=== PATIENT | male | born 1965 | race Caucasian/White ===

== ENCOUNTER 2021-08-04 11:09 | Emergency (ER) | payer OTHER ==
[~2021-08-04] VITALS: Ht 177.8 cm; Wt 97.2 kg
[2021-08-04 11:12] VITALS: BP 150/98
--- NOTE | 2021-08-04 11:26 | NUR ---
PT AMBULATED TO ER BED 1 WITH A STEADY GAIT.
[2021-08-04] MEDS ORDERED: MAG-27 PO (11:44)
[2021-08-04] MEDS ORDERED: ACET-8386 PO (11:44)
[2021-08-04] MEDS ORDERED: KETOROLAC 30 MG/ML VIAL IM ONE (11:45)
[2021-08-04] MEDS ORDERED: DICYCLOMINE HCL LIQUID 20 MG, ALUMINUM HYD/MAG/SIMETHICONE 30 ML, LIDOCAINE VISCOUS 2% ... PO ONE ×3 (11:45)
[2021-08-04] MEDS ORDERED: HYDROcodone/APAP 5/325 MG 1 TAB TAB PO ONE (11:45)
--- NOTE | 2021-08-04 11:45 | NUR ---
56 Y/O MALE C/O GENERALIZED ABDOMINAL PAIN 04/08 DESCRIBES ACHING NON-RADIATING X 3 MONTHS. ABD IS SOFT, LARGE, NON-TENDER TO PALPATION, BOWEL SOUNDS ACTIVE X4, LAST BM 08/03/21. DENIES FEVER/CHILLS. DENIES N/V/D. PMH: KIDNEY, PANCREAS PROBLEMS LLERGIES: PCN
[2021-08-04] MEDS ORDERED: ALUMINUM HYD/MAG/SIMETHICONE 30 ML UDC ONE (11:47)
[2021-08-04] MEDS ORDERED: DICYCLOMINE HCL LIQUID 10 MG/5 ML UDC ONE (11:47)
[2021-08-04 12:06] VITALS: BP 138/92
--- NOTE | 2021-08-04 12:07 | NUR ---
Patient discharged with v/s stable. Written and verbal after care instructions given FOR ABDOMINAL PAIN and explained. Patient alert, oriented and verbalized understanding of instructions. Ambulatory with steady gait. All questions addressed prior to discharge. ID band removed. Patient advised to follow up with PMD. Rx of MYLANTA AND NORCO given. Patient educated on indication of medication including possible reaction and side effects. Opportunity to ask questions provided and answered.
== END 2021-08-04 12:06 | disposition home or self-care (01) ==
LOC: MED 11:09
DX: R10.9 Unspecified abdominal pain (principal); G89.29 Other chronic pain; F17.210 Nicotine dependence, cigarettes, uncomplicated; Z79.891 Long term (current) use of opiate analgesic; Z79.899 Other long term (current) drug therapy; Z90.49 Acquired absence of other specified parts of digestive tract; Z88.0 Allergy status to penicillin
CPT/HCPCS: 81002; 96372; 99283; J1885

== ENCOUNTER 2021-08-16 11:03 | Emergency (ER) | payer OTHER ==
[~2021-08-16] VITALS: Ht 177.8 cm; Wt 98.9 kg
[~2021-08-16 11:03] MED LIST: ACET-8386 PO; MAG-27 PO
[2021-08-16 11:06] VITALS: BP 153/99
--- NOTE | 2021-08-16 11:12 | NUR ---
56/M AMBULATED TO BED, C/O ABDOMINAL PAIN X3 MONTHS. STATES "I THINK I HAVE GALLSTONES." DENIES N/V/D, DYSURIA, CP. MEDHX: HTN ALLERGIES: PENICILLINS, SX: GLABLADDER REMOVED 3 YEARS AGO
[2021-08-16] MEDS ORDERED: HYDROcodone/APAP 10/325 MG 1 TAB TAB PO STA (11:21)
[2021-08-16] MEDS ORDERED: DICYCLOMINE HCL LIQUID 20 MG, ALUMINUM HYD/MAG/SIMETHICONE 30 ML, LIDOCAINE VISCOUS 2% ... PO ONE ×3 (11:25)
[2021-08-16] MEDS ORDERED: KETOROLAC 30 MG/ML VIAL IM ONE (11:25)
[2021-08-16] MEDS ORDERED: DICYCLOMINE HCL LIQUID 10 MG/5 ML UDC ONE (11:27)
[2021-08-16] MEDS ORDERED: ALUMINUM HYD/MAG/SIMETHICONE 30 ML UDC ONE ×2 (11:27→11:30)
[2021-08-16] MEDS ORDERED: MAG-27 PO (11:28)
[2021-08-16] MEDS ORDERED: ALUMINUM HYD/MAG/SIMETHICONE 30 ML UDC PO ONE (11:30)
--- NOTE | 2021-08-16 11:50 | NUR ---
Patient discharged with v/s stable. Written and verbal after care instructions given and explained. Patient alert, oriented and verbalized understanding of instructions. Ambulatory with steady gait. All questions addressed prior to discharge. ID band removed. Patient advised to follow up with PMD. Rx of MYLANTA given. Patient educated on indication of medication including possible reaction and side effects. Opportunity to ask questions provided and answered.
== END 2021-08-16 11:50 | disposition home or self-care (01) ==
LOC: MED 11:03
DX: R10.13 Epigastric pain (principal); G89.29 Other chronic pain; I10 Essential (primary) hypertension; Z88.0 Allergy status to penicillin; Z79.899 Other long term (current) drug therapy
CPT/HCPCS: 96372; 99284; J1885

== ENCOUNTER 2021-08-29 03:53 | Emergency (ER) | payer OTHER ==
[~2021-08-29] VITALS: Ht 177.8 cm; Wt 99.4 kg
[2021-08-29 04:01] VITALS: BP 116/76
--- NOTE | 2021-08-29 04:06 | NUR ---
PT TAKEN TO BED 4
--- NOTE | 2021-08-29 04:25 | NUR ---
56 Y/O MALE BIB SELF, C/O ABDOMINAL PAIN X5 MONTHS. PT STATES HE HAD A CHOLECYSTECTOMY 3 YRS AGO AND EVER SINCE THEN HE HAS HAD ABDOMINAL PAIN AND THAT HE HAS "A KIDNEY STONE STUCK." DENIES V/D; SKIN IS PINK/WARM/DRY; AAOX4 WITH EVEN AND STEADY GAIT; LUNGS CLEAR BL; HR EVEN AND REGULAR; PT DENIES ANY FEVER, CP, SOB, OR COUGH AT THIS TIME; PATIENT STATES PAIN OF 10/10 AT THIS TIME; PT IS IN NO VISUAL DISTRESS; VSS; PATIENT POSITIONED FOR COMFORT; HOB ELEVATED; BEDRAILS UP X1; BED DOWN. ER MD MADE AWARE OF PT STATUS. STATES HE IS GOING TO SEE A SPECIALIST ABOUT HIS ABDOMEN ON THE . HX: CHOLECYSTECTOMY, HTN ALLERGIES TO PCN MED: UNK HTN MED
[2021-08-29] MEDS ORDERED: KETOROLAC 30 MG/ML VIAL IVP ONE (04:30)
[2021-08-29] MEDS ORDERED: ALUMINUM HYD/MAG/SIMETHICONE 30 ML, DICYCLOMINE HCL LIQUID 20 MG, LIDOCAINE VISCOUS 2% ... PO ONE ×3 (04:30)
[2021-08-29] MEDS ORDERED: NACL 0.9% 1,000 ML IV SCH (04:30)
--- NOTE | 2021-08-29 04:40 | NUR ---
PT REFUSES CT BECAUSE HE SAYS SINCE HE HAS HAD MULTIPLE CT IN THE PAST AND HAS A ULTRASOUND APPT ON THE . PT ADMITS HE IS SEEKING PAIN MANAGEMENT UNTIL HIS APPOINTMENT.
[2021-08-29] MEDS ORDERED: ALUMINUM HYD/MAG/SIMETHICONE 30 ML UDC ONE (04:45)
[2021-08-29] MEDS ORDERED: KETOROLAC 60 MG/2 ML VIAL IM ONE (04:45)
[2021-08-29] MEDS ORDERED: PANTOPRAZOLE 40 MG TABEC PO ONE (04:45)
[2021-08-29] MEDS ORDERED: DICYCLOMINE HCL LIQUID 10 MG/5 ML UDC ONE (04:45)
[2021-08-29 04:58] VITALS: BP 116/76
--- NOTE | 2021-08-29 04:58 | NUR ---
Patient discharged with v/s stable. Written and verbal after care instructions given and explained. Patient verbalized understanding. Ambulatory with steady gait. All questions addressed prior to discharge. Advised to follow up with PMD. VSS, A/OX4, AMBULATORY, UNLABORED BREATHING, AND CALM DEMEANOR.
== END 2021-08-29 04:58 | disposition home or self-care (01) ==
LOC: MED 03:53
DX: R10.33 Periumbilical pain (principal); G89.29 Other chronic pain; I10 Essential (primary) hypertension; Z79.899 Other long term (current) drug therapy; Z79.891 Long term (current) use of opiate analgesic; Z88.0 Allergy status to penicillin
CPT/HCPCS: 96372; 99283; J1885

== ENCOUNTER 2021-08-30 15:03 | Emergency (ER) | payer OTHER ==
[~2021-08-30] VITALS: Ht 177.8 cm; Wt 95.3 kg
[2021-08-30 15:09] VITALS: BP 159/90
--- NOTE | 2021-08-30 15:48 | NUR ---
patient refusing care at this time and eloped
--- NOTE | 2021-08-30 15:48 | NUR ---
PATIENT ELOPED FROM FACILITY. DISCHARGE INSTRUCTIONS NOT GIVEN TO PATIENT. JADA SANDOVAL NOTIFIED.
== END 2021-08-30 15:48 | disposition left against medical advice (07) ==
LOC: MED 15:03
DX: G89.29 Other chronic pain (principal); R10.33 Periumbilical pain; I10 Essential (primary) hypertension; F17.210 Nicotine dependence, cigarettes, uncomplicated; Z90.49 Acquired absence of other specified parts of digestive tract; Z88.0 Allergy status to penicillin; Z79.899 Other long term (current) drug therapy
CPT/HCPCS: 99281

== ENCOUNTER 2021-10-26 16:47 | Emergency (ER) | payer OTHER ==
[~2021-10-26] VITALS: Ht 177.8 cm; Wt 99.3 kg
[2021-10-26 16:58] VITALS: BP 107/60
--- NOTE | 2021-10-26 17:01 | NUR ---
PT TO AWAIT IN LOBBY
--- NOTE | 2021-10-26 17:45 | NUR ---
PT AMBULATED TO BED, STEADY GAIT
[2021-10-26] MEDS ORDERED: KETOROLAC 60 MG/2 ML VIAL IM ONE (17:55)
[2021-10-26] MEDS ORDERED: ACET-8386 PO (18:39)
--- NOTE | 2021-10-26 18:40 | NUR ---
56 y/o male, c/o abd pain and bug bite on abd area that appeared 4 days ago. site appears red and has yellow discharge. pt states "I think a spider bit me". denies nausea, vomiting, diarrhea. lungs clear bl, heart rate even and regular. pt denies any fever, cp, sob, or cough at this time. pt states pain is 8/10. patient positioned for comfort. hob elevated. bed down. ermd made aware of pt. pmh: peptic ulcer allergy: penicillin
--- NOTE | 2021-10-26 18:55 | NUR ---
Patient discharged with v/s stable. Written and verbal after care instructions given and explained. Patient alert, oriented and verbalized understanding of instructions. Ambulatory with steady gait. All questions addressed prior to discharge. ID band removed. Patient advised to follow up with PMD. Rx of HYDROCODONE given. Opportunity to ask questions provided and answered.
== END 2021-10-26 18:55 | disposition home or self-care (01) ==
LOC: MED 16:47
DX: L02.211 Cutaneous abscess of abdominal wall (principal); L03.311 Cellulitis of abdominal wall; I10 Essential (primary) hypertension; F17.210 Nicotine dependence, cigarettes, uncomplicated; Z90.49 Acquired absence of other specified parts of digestive tract; Z79.899 Other long term (current) drug therapy; Z79.891 Long term (current) use of opiate analgesic; Z88.0 Allergy status to penicillin
CPT/HCPCS: 96372; 99283; J1885

== ENCOUNTER 2021-11-02 15:01 | Emergency (ER) | payer OTHER ==
[~2021-11-02] VITALS: Ht 177.8 cm; Wt 89.0 kg
--- NOTE | 2021-11-02 15:05 | NUR ---
PT AMBULATED TO BEDSIDE
[2021-11-02 15:06] VITALS: BP 139/83
--- NOTE | 2021-11-02 15:20 | NUR ---
DR. CASTRO AT PT BEDSIDE FOR FURTHER EVALUATION.
[2021-11-02] MEDS ORDERED: ONDANSETRON 4 MG TAB PO ONE (15:25)
[2021-11-02] MEDS ORDERED: MORPHINE SULFATE 4 MG/ML SYR IM ONE (15:25)
--- NOTE | 2021-11-02 15:32 | NUR ---
56Y MALE BIB SELF DUE TO ABDOMINAL PAIN AND N/V S/P GETTING BITE BY SPIDER X4 DAYS AGO. BITE/ABCESS NOTED ON PT ABDOMEN. PT STATED CAN NOT KEEP FOOD OR WATER DOWN. DOES NOT HAVE DIAHRREA. THE PAIN HAS BEEN A 10/10 FOR THE PAST 3 DAYS. THE PAIN IS SHARP ALL OVER HIS ABDOMEN. SPIDEER BITE NOTED ABOVE UMBILICUS THAT PT STATES IS GETTIG BETTER. PT STATED HE WAS TAKING NORCOS FOR THE PAIN BUT RAN OUT. A&OX3 IN BED. PMH:GALLBLADDER REMOVAL ALLERGIES: PENICILLINS
[2021-11-02] MEDS ORDERED: HYDR-5191 PO ×2 (15:51→19:49)
[2021-11-02] MEDS ORDERED: ONDA8TAB87 PO ×2 (15:51→19:49)
--- NOTE | 2021-11-02 16:29 | NUR ---
PER J ULIS NAZARIO ITS OKAY TO DISCHARGE PT NOW.
[2021-11-02] MEDS ORDERED: OMEP40EC24 PO ×2 (16:35→19:49)
[2021-11-02] MEDS ORDERED: DICYCLOMINE HCL LIQUID 20 MG, ALUMINUM HYD/MAG/SIMETHICONE 30 ML, LIDOCAINE VISCOUS 2% ... PO ONE ×3 (16:35)
[2021-11-02 16:47] VITALS: BP 139/83
--- NOTE | 2021-11-02 16:48 | NUR ---
Patient discharged with v/s stable. Written and verbal after care instructions given and explained. Patient alert, oriented and verbalized understanding of instructions. Ambulatory with steady gait. All questions addressed prior to discharge. ID band removed. Patient advised to follow up with PMD. Rx of PEPCID, ZOFRAN, AND HYDROCODONE-ACETAMINOPHN given. Patient educated on indication of medication including possible reaction and side effects. Opportunity to ask questions provided and answered.
== END 2021-11-02 16:48 | disposition home or self-care (01) ==
LOC: MED 15:01
DX: L02.211 Cutaneous abscess of abdominal wall (principal); R11.2 Nausea with vomiting, unspecified; I10 Essential (primary) hypertension; Z88.0 Allergy status to penicillin; Z79.899 Other long term (current) drug therapy; Z90.49 Acquired absence of other specified parts of digestive tract
CPT/HCPCS: 10060; 81002; 96372; 99283; J2270; Q0162

== ENCOUNTER 2021-11-03 11:51 | Inpatient (IN) | payer OTHER ==
[~2021-11-03] VITALS: Ht 175.3 cm; Wt 81.6 kg
[~2021-11-03 11:51] MED LIST changes: +HYDR-5191 PO; +OMEP40EC24 PO; +ONDA8TAB87 PO
--- NOTE | 2021-11-03 12:00 | NUR ---
56 Y/O MALE BIBA C/O GENERALIZED ABDOMINAL PAIN WITH N/V X1 MONTH. PAIN RATED 10/10 NON RADIATING. PT WAS SEEN IN ED FOR SAME COMPLAINT 1 DAY AGO. PT WAS MEDICATED PRIOR TO ARRIVAL WITH ZOFRAN 4MG IVP. PT DENIES SOB, CHEST PAIN. VSS P101, R 18, O2SaT 100 ROOM AIR, BP 132/82. BED LOCKED IN LOWEST POSITION. BED RAIL X1. PMH:pancreatitis ALLERGIES:PENICILLIN
--- NOTE | 2021-11-03 12:31 | NUR ---
DR LAUREANO AT BEDSIDE EVALUATING PT
[2021-11-03] MEDS ORDERED: FAMOTIDINE 20 MG/2 ML VIAL IVP ONE (12:35)
[2021-11-03] MEDS ORDERED: MORPHINE SULFATE 4 MG/ML SYR IVP ONE (12:35)
[2021-11-03] MEDS ORDERED: ONDANSETRON 4 MG/2 ML VIAL IVP ONE (12:35)
[2021-11-03 13:37] LABS: BASOPHILS # (AUTO) 0.1 K/uL (0.00-0.22); BASOPHILS % (AUTO) 0.4 % (0.0-2.0); EOSINOPHILS % (AUTO) 0.1 % (0.0-4.0); HEMATOCRIT 43.4 % (36-52); HEMOGLOBIN 14.6 g/dL (12.0-18.0); LYMPHOCYTES % (AUTO) 13.7 % (20.5-51.1); MEAN CORPUSCULAR HEMOGLOBIN 30 pg (27-31); MEAN CORPUSCULAR HGB CONC 34 g/dL (33-37); MEAN CORPUSCULAR VOLUME 90.3 fL (80-94); MONOCYTES # (AUTO) 0.9 K/uL (0.8-1.0); NEUTROPHILS # (AUTO) 11.6 K/uL (1.8-7.7); NEUTROPHILS % (AUTO) 79.8 % (42.2-75.2); PLATELET COUNT (AUTO) 336 K/uL (140-450); RED BLOOD CELL COUNT(AUTO) 4.81 MIL/uL (4.20-6.10); RED CELL DISTRIBUTION WIDTH 13.5 % (11.6-13.7); WHITE BLOOD COUNT (AUTO) 14.5 K/uL (4.8-10.8)
[2021-11-03 13:49] LABS: ALBUMIN 3.9 g/dL (3.4-5.0); ANION GAP 12.9 (8-16); CARBON DIOXIDE 21.8 mmol/L (21-32); CREATININE 0.1 mg/dL (0.6-1.3); POTASSIUM 4.7 mmol/L (3.5-5.1); TOTAL BILIRUBIN 0.4 mg/dL (0.0-1.0)
[2021-11-03] MEDS ORDERED: NACL 0.9% 1,000 ML IV ONE (14:05)
[2021-11-03] MEDS ORDERED: diphenhydrAMINE 50 MG/ML VIAL IVP ONE (15:30)
[2021-11-03] MEDS ORDERED: METOCLOPRAMIDE 10 MG/2 ML INJ VIAL IVP ONE (15:30)
--- NOTE | 2021-11-03 15:35 | NUR ---
IV INSERTED BY MEDICS REMOVED. MD LAUREANO AWARE. CATHETER INTACT AND SITE BENING TO R AC. APPLIED FOLDED 4X4 GAUZE AND TAPE TO STOP BLEEDING.
--- NOTE | 2021-11-03 15:54 | NUR ---
MED RECONCILIATION ATTEMPTED. PT STATES HE TAKES MANY MEDICATIONS AND CANNOT RECALL THE NAMES AND DOSAGES.
[2021-11-03 16:10] VITALS: BP 160/95
--- NOTE | 2021-11-03 16:10 | NUR ---
RECEIVED PATIENT FROM ER NURSE VIA W/C. PT ADMITTED FOR ACUTE PANCREATITIS. PT IS AOX3, ABLE TO MAKE NEEDS KNOWN. RESPIRATIONS EVEN AND UNLABORED. ON ROOM AIR AND NO DISTRESS NOTED. SKIN IS WARM, DRY, AND NON-INTACT. IV SITE ON LAC 20G SALINE LOCKED. INTACT AND PATENT. S/P I&D ABD WOUND FROM SPIDER BITE. NO DRAINAGE NOTED. ABD IS SOFT, FLAT, AND NON-DISTENDED. BOWEL SOUNDS ACTIVE IN ALL QUADRANTS. CC OF ABD PAIN 6/10. WILL MEDICATE WITH PRN PAIN MEDS. PLAN OF CARE DISCUSSED. SAFETY PRECAUTIONS IN PLACE. CALL LIGHT WITHIN REACH. WILL CONTINUE TO MONITOR.
--- NOTE | 2021-11-03 16:23 | NUR ---
Patient will be admitted to care of [facility]. Admited to MED SURG. Will go to room 123 B. Belongings list completed. Report to EMY BETHEA.
[2021-11-03] MEDS ORDERED: MAGNESIUM OXIDE 400 MG TAB PO PRN (17:25)
[2021-11-03] MEDS ORDERED: KCL 20 MEQ/WATER INJ PREMIX 200 ML IV PRN (17:25)
[2021-11-03] MEDS ORDERED: ACETAMINOPHEN 325 MG TAB PO PRN (17:25)
[2021-11-03] MEDS ORDERED: POTASSIUM CHLORIDE 10 MEQ TABER PO PRN (17:25)
[2021-11-03] MEDS ORDERED: MORPHINE SULFATE 4 MG/ML SYR IVP PRN (17:25)
[2021-11-03] MEDS ORDERED: ONDANSETRON 4 MG/2 ML VIAL IVP PRN (17:25)
[2021-11-03] MEDS ORDERED: MAG SULF 2000 MG/WATER PREMIX 50 ML IV PRN (17:25)
[2021-11-03] MEDS: NACL 0.9% 1,000 ML IV SCH (17:46)
--- NOTE | 2021-11-03 17:46 | NUR ---
PATIENT CC OF 10/ ABD PAIN. ADMINISTERED PRN PAIN MEDICATIONS PER MD ORDERED
--- NOTE | 2021-11-03 19:35 | NUR ---
ENDORSED TO SHAREPOINT APPLICATION ARCHITECT NURSE FOR CONTINUITY OF CARE. PT IS STABLE.
--- NOTE | 2021-11-03 19:36 | NUR ---
RECEIVED PT FROM AM NURSE FOR CONTINUITY IF CARE.PT IS STABLE
[2021-11-03 20:00] VITALS: BP 145/93
--- NOTE | 2021-11-03 21:30 | NUR ---
ALL MEDS GIVEN AT THIS TIME,TOLERATED WELL,NO DISTRESS NOTED
[2021-11-03] MEDS: ZOLPIDEM 5 MG TAB PO PRN (23:24)
[2021-11-04] VITALS: BP 139/84
--- NOTE | 2021-11-04 | NUR ---
PATIENT ACCIDENTALLY PULLED OUT HIS IV. ATTEMPTED TO REINSERT NEW IV BUT FAILED. CARRIZALES THE DR TO PRESCRIBE IM UNTIL A NEW IV SITE IS IN PLACE, DR SAID OK,MORPHINE SULFATE IM GIVEN FOR COMPLAIN OF ABDOMINAL PAIN.
--- NOTE | 2021-11-04 01:00 | NUR ---
NEW IV SITE IN PLACE.INTACT AND PATENT.PATIENT IS IN NO DISTRESS
[2021-11-04] MEDS: MORPHINE SULFATE 4 MG/ML SYR IM/IVP PRN ×5 (01:14→22:19)
--- NOTE | 2021-11-04 03:00 | NUR ---
PATIENT ASLEEP,BREATHING EVEN AND UNLABORED,NO DISTRESS NOTED
[2021-11-04 04:00] VITALS: BP 140/89
[2021-11-04] MEDS: NACL 0.9% 1,000 ML IV SCH ×2 (05:55→18:05)
--- NOTE | 2021-11-04 06:00 | NUR ---
PATIENT PULLED OUT HIS IV AGAIN, UNABLE TO INSERT A NEW IV SITE, WILL ENDORSE TO AM SHIFT
[2021-11-04 07:18] LABS: ALBUMIN 3.5 g/dL (3.4-5.0); ANION GAP 14.5 (8-16); CARBON DIOXIDE 23.3 mmol/L (21-32); CREATININE 1.8 mg/dL (0.6-1.3); POTASSIUM 4.8 mmol/L (3.5-5.1); TOTAL BILIRUBIN 0.4 mg/dL (0.0-1.0)
[2021-11-04 07:20] LABS: BASOPHILS % (AUTO) 0.2 % (0.0-2.0); EOSINOPHILS % (AUTO) 0.1 % (0.0-4.0); HEMATOCRIT 42.7 % (36-52); HEMOGLOBIN 14.3 g/dL (12.0-18.0); LYMPHOCYTES # (AUTO) 2.1 K/uL (2.0-11.5); LYMPHOCYTES % (AUTO) 12.8 % (20.5-51.1); MEAN CORPUSCULAR HEMOGLOBIN 30 pg (27-31); MEAN CORPUSCULAR HGB CONC 34 g/dL (33-37); MEAN CORPUSCULAR VOLUME 90.2 fL (80-94); MONOCYTES # (AUTO) 1.3 K/uL (0.8-1.0); MONOCYTES % (AUTO) 7.7 % (1.7-9.3); NEUTROPHILS % (AUTO) 79.2 % (42.2-75.2); PLATELET COUNT (AUTO) 290 K/uL (140-450); RED BLOOD CELL COUNT(AUTO) 4.74 MIL/uL (4.20-6.10); RED CELL DISTRIBUTION WIDTH 13.3 % (11.6-13.7); WHITE BLOOD COUNT (AUTO) 16.4 K/uL (4.8-10.8)
--- NOTE | 2021-11-04 07:25 | NUR ---
RECEIVED ENDORSEMENT FROM PM SHIFT NURSE THAT PATIENT REST IN BED, IV ACCESS PULLED OUT BY PATIENT, REQUEST PAIN MEDICATION; PO ATIVAN & IM MORPHINE GIVEN. PCP AWARE PATIENT REFUSE IV, AND SOME IV MEDICATION CAN GIVEN IM. WILL CONTINUE TO MONITOR PATIENT.
[2021-11-04] MEDS: LORazepam 1 MG TAB PO PRN ×3 (07:46→18:06)
[2021-11-04 08:00] VITALS: BP 142/73
--- NOTE | 2021-11-04 08:08 | NUR ---
PATIENT HAS BEEN SCREENED AND CATEGORIZED MODERATE NUTRITION RISK. PATIENT WILL BE SEEN WITHIN 3-5 DAYS OF ADMISSION. 11/04/21-11/08/[address]
[2021-11-04] MEDS: ENOXAPARIN 40 MG/0.4 ML SYR SUBQ SCH (09:09)
--- NOTE | 2021-11-04 11:30 | NUR ---
RECEIVE NEW ORDER PANTOPRAZOLE FOR PATIENT'S UPSET STOMACH, GIVE MEDICATION THROUGH IV PUSH AT L. FOREARM 24G SITE AFTER GIVE PATIENT ANOTHER DOSE OF PO ATIVAN AND IM MORPHINE. WILL CONTINUE TO MONITOR PATIENT.
[2021-11-04] MEDS: PANTOPRAZOLE 40 MG INJ VIAL IVP SCH (11:45)
--- NOTE | 2021-11-04 14:28 | NUR ---
RECEIVED 2ND STATUS CHECK CALL FROM PATIENT'S FAMILY AND INFORM HIS SISTER THAT PATIENT IS SLEEPING AFTER HAVE PAIN MEDICATION. WILL CONTINUE TO MONITOR
[2021-11-04 16:00] VITALS: BP 131/92
[2021-11-04] MEDS: HYDROcodone/APAP 5/325 MG 1 TAB TAB PO PRN (19:11)
--- NOTE | 2021-11-04 19:32 | NUR ---
ENDORSE PT TO PM SHIFT NURSE WHILE PATIENT REST IN BED, PIV L. FOREARM PATENT, SALINE LOCKED. DUE TO PATIENT PULL IV OUT MULTIPLE TIME, PATIENT'S SOME IV MEDICATION CAN GIVEN IM
--- NOTE | 2021-11-04 19:33 | NUR ---
RECEIVED ENDORSEMENT FROM EMY ALVA FOR CONTINUITY OF CARE. PATIENT IS AWAKE AND STABLE. A&OX3. VERBALLY RESPONSIVE AND ABLE TO COMMUNICATE NEEDS. ON ROOM AIR WITH NO APPARENT S/SX OF ACUTE DISTRESS. RESPIRATIONS EVEN AND UNLABORED WITH NO APPARENT S/SX OF ACUTE DISTRESS. AMBULATORY AND SCABBING WOUND ON ABD NOTED. CONTINENT OF VOID AND BM. IV SITE TO THE LFA 24G PATENT/INTACT WITH NS INFUSING AT 80 ML/HR. PLAN OF CARE AND WHITE COMMUNICATION BOARD UPDATED. ALL SAFETY MEASURES IN PLACE. CALL LIGHT WITHIN REACH. WILL CONTINUE TO MONITOR.
[2021-11-04 20:00] VITALS: BP 125/71
--- NOTE | 2021-11-04 20:00 | NUR ---
Patient's Plan of Care was discussed and reviewed with MOISES MCKENZIE
--- NOTE | 2021-11-04 21:10 | NUR ---
ADMINISTERED SCHEDULED PO MEDS PER MD ORDER. TOLERATED WELL. DENIES PAIN. RESPIRATIONS EVEN AND UNLABORED WITH NO APPARENT S/SX OF ACUTE DISTRESS. WHITE COMMUNICATION BOARD UPDATED. ALL SAFETY MEASURES IN PLACE. CALL LIGHT WITHIN REACH. WILL CONTINUE TO MONITOR.
[2021-11-04] MEDS: ZOLPIDEM 5 MG TAB PO PRN (21:21)
--- NOTE | 2021-11-04 21:30 | NUR ---
SPOKE WITH PATIENT'S SISTER ANGELA REGARDING PATIENT'S PSYCH MEDS. PER SISTER, [facility] WILL RELEASE INFORMATION TO HOSPITAL.
--- NOTE | 2021-11-04 21:45 | NUR ---
SPOKE WITH RAEGAN AT [facility] AND DISCLOSED THAT PATIENT TAKES BUSPAR 30MG BID AND SEROQUEL 100MG HQS. WILL CONTACT ON-CALL FOR PRESCRIPTION.
--- NOTE | 2021-11-04 22:10 | NUR ---
DR. AGUILAR APPROVED BUSPAR AND SEROQUEL FOR PRESCRIPTION. WILL PUT IN TORB.
[2021-11-04] MEDS ORDERED: QUEtiapine FUMARATE 100 MG TAB PO SCH (22:32)
[2021-11-04] MEDS: busPIRone 5 MG TAB PO SCH (22:39)
--- NOTE | 2021-11-05 01:05 | NUR ---
CHECKED PATIENT. PATIENT IS STABLE AND ASLEEP. CHEST IS RISING AND FALLING EVENLY. RESPIRATIONS EVEN AND UNLABORED WITH NO APPARENT S/SX OF ACUTE DISTRESS. WHITE COMMUNICATION BOARD UPDATED. ALL SAFETY MEASURES IN PLACE. CALL LIGHT WITHIN REACH. WILL CONTINUE TO MONITOR.
--- NOTE | 2021-11-05 03:25 | NUR ---
ROUNDED ON PATIENT. PATIENT IS STABLE AND ASLEEP. CHEST IS RISING AND FALLING EVENLY. RESPIRATIONS EVEN AND UNLABORED WITH NO APPARENT S/SX OF ACUTE DISTRESS. WHITE COMMUNICATION BOARD UPDATED. ALL SAFETY MEASURES IN PLACE. CALL LIGHT WITHIN REACH. WILL CONTINUE TO MONITOR.
[2021-11-05 04:00] VITALS: BP 125/93
[2021-11-05] MEDS: MORPHINE SULFATE 4 MG/ML SYR IM/IVP PRN ×4 (04:33→20:58)
[2021-11-05] MEDS: LORazepam 1 MG TAB PO PRN ×3 (04:58→21:09)
--- NOTE | 2021-11-05 05:00 | NUR ---
PATIENT YELLED, "COME HELP ME!" AND BANGED DOOR. PATIENT APPEARS TO BE ANXIOUS. OFFERED PATIENT SNACKS AND FLUIDS. PATIENT COMPLIED. MEDICATED PATIENT WITH PRN ATIVAN PO. TOLERATED WELL. GAVE PATIENT MORE BLANKETS PER REQUEST. PATIENT APPEARS TO CALM DOWN. ALL NEEDS MET. WHITE COMMUNICATION BOARD UPDATED. ALL SAFETY MEASURES IN PLACE. CALL LIGHT WITHIN REACH. WILL CONTINUE TO MONITOR.
[2021-11-05] MEDS: NACL 0.9% 1,000 ML IV SCH ×2 (06:55→19:25)
[2021-11-05 06:57] LABS: BASOPHILS % (AUTO) 0.2 % (0.0-2.0); EOSINOPHILS % (AUTO) 0.3 % (0.0-4.0); HEMATOCRIT 40.9 % (36-52); HEMOGLOBIN 13.9 g/dL (12.0-18.0); LYMPHOCYTES # (AUTO) 1.7 K/uL (2.0-11.5); LYMPHOCYTES % (AUTO) 12.2 % (20.5-51.1); MEAN CORPUSCULAR HEMOGLOBIN 31 pg (27-31); MEAN CORPUSCULAR HGB CONC 34 g/dL (33-37); MEAN CORPUSCULAR VOLUME 90.1 fL (80-94); MONOCYTES % (AUTO) 7.5 % (1.7-9.3); NEUTROPHILS % (AUTO) 79.8 % (42.2-75.2); PLATELET COUNT (AUTO) 232 K/uL (140-450); RED BLOOD CELL COUNT(AUTO) 4.54 MIL/uL (4.20-6.10); RED CELL DISTRIBUTION WIDTH 13.3 % (11.6-13.7); WHITE BLOOD COUNT (AUTO) 13.7 K/uL (4.8-10.8)
--- NOTE | 2021-11-05 07:05 | NUR ---
ENDORSED PATIENT TO MOISES PARKS FOR CONTINUITY OF CARE. PATIENT IS STABLE.
--- NOTE | 2021-11-05 07:06 | NUR ---
RECEIVED REPORT FROM CHILD CARE COUNSELOR NURSE FOR CONTINUITY OF CARE. PT IS IN BED RESTING AT THIS TIME. RESPIRATIONS ARE EVEN AND UNLABORED ON ROOM AIR. NO SIGNS OF DISTRESS NOTED. PATIENT IS A&OX3. ABLE TO VERBALIZE NEEDS TO STAFF. ABD IS NONTENDER, NONDISTENDED WITH BOWEL SOUNDS PRESENT. IS PT CONTINENT OF BOWEL AND BLADDER, ABLE TO AMBULATE. SKIN IS WARM, AND DRY, WITH SCABBING WOUND ON ABD NOTED. PT HAS IV SITE TO THE LFA 24G PATENT/INTACT WITH NS INFUSING AT 80 ML/HR. PT IS ON ISOLATION PRECAUTIONS, COVID RAPID POSITIVE. ALL SAFETY MEASURES IN PLACE. CALL LIGHT WITHIN REACH. WILL CONTINUE TO MONITOR.
[2021-11-05 07:11] LABS: ALBUMIN 3.2 g/dL (3.4-5.0); ANION GAP 12.3 (8-16); CREATININE 1.7 mg/dL (0.6-1.3); POTASSIUM 4.3 mmol/L (3.5-5.1); TOTAL BILIRUBIN 0.6 mg/dL (0.0-1.0)
[2021-11-05 08:00] VITALS: BP 121/85
--- NOTE | 2021-11-05 08:00 | NUR ---
Patient's Plan of Care was discussed and reviewed with LASER BEAM TRIM OPERATOR: KASEY CONROY
[2021-11-05] MEDS: ENOXAPARIN 40 MG/0.4 ML SYR SUBQ SCH (08:14)
[2021-11-05] MEDS: busPIRone 5 MG TAB PO SCH ×2 (08:15→21:09)
[2021-11-05] MEDS: PANTOPRAZOLE 40 MG INJ VIAL IVP SCH (08:18)
[2021-11-05] MEDS: HYDROcodone/APAP 5/325 MG 1 TAB TAB PO PRN (08:18)
--- NOTE | 2021-11-05 08:19 | NUR ---
ADMINISTERED ALL SCHEDULED MEDICATIONS. PT REFUSED IV PROTONIX, STATED "I DONT WANT ANYTHING GOING INTO MY ARM I DONT LIKE IT". EDUCATED PT ON MEDICATION PROTONIX AND ON ADVANTAGES OF MEDICATION. PT CONTINUES TO REFUSE. PT ALSO STATING HE HAS PAIN AT THIS TIME. RATES PAIN 5/10. MEDICATED. WILL CONTINUE TO MONITOR.
--- NOTE | 2021-11-05 09:19 | NUR ---
WENT TO RE-ASSESS PT PAIN. PT YELLING AND STATES PAIN IS AT 4/10. WILL CONTINUE TO MONITOR.
--- NOTE | 2021-11-05 10:50 | NUR ---
WOUND ASSESSMENT DONE ON THIS PT.. PER PRIMARY NURSE, PT IS MEDICATED FOR PAIN . UPON ARRIVAL, PT IS ASLEEP, LOWER MID ABDOMINAL WOUND ASSESSED AND PT. DID NOT WAKE UP. S/P DRAIN TO MID ABDOMINAL SURGICAL WOUND 0.8X1CM 100% DRY BROWN SCAB, NO ODOR, CHARO-WOUND SKIN DRY AND INTACT NO SWELLING ,NO ERYTHEMA. POC DISCUSSED WITH PRIMARY NURSE. RECOMMENDATIONS: -PAINT LOWER MID ABDOMEN WOUND WITH BETADINE SWAP BID, KEEP AREA DRY AND CLEAN.
--- NOTE | 2021-11-05 11:02 | NUR ---
PT YELLING AND SCREAMING. WENT TO ROOM TO CHECK ON PT. PT STATES HE IS IN A LOT OF PAIN. STATES PAIN IS 7/10. MEDICATED. WILL CONTINUE TO MONITOR.
--- NOTE | 2021-11-05 12:02 | NUR ---
WENT TO CHECK ON PT AND TO RE-ASSESS PAIN. PT SLEEPING AT THIS TIME. RESPIRATIONS ARE EVEN AND UNLABORED. WILL CONTINUE TO MONITOR.
[2021-11-05] MEDS: GAUZE TP SCH (12:21)
--- NOTE | 2021-11-05 12:24 | NUR ---
PT SISTER CALLED FOR UPDATE ON PT. GAVE UPDATE. PT SISTER DID MENTION TO NURSE THAT "IM JUST LETTING YOU KNOW THAT ONCE HE FEELS BETTER HE WILL LEAVE. HE HAS DONE THIS IN THE PAST AT ANOTHER HOSPITAL. HE GETS SOME TREATMENT, FEELS BETTER AND THEN JUST LEAVES. ALSO WHEN HE IS SICK HE IS VERY MEAN, HAS A POTTY MOUTH AND IS ALL AROUND RUDE". NOTED. WILL CONTINUE TO MONITOR.
--- NOTE | 2021-11-05 15:32 | NUR ---
DC PLANNING: THE PATIENT WAS BIBA FOR C/O ABDOMINAL PAIN X 3 DAYS, ALSO C/O N/V. H/O PANCREATITIS, DIVERTICULAR DISEASE, RENAL DISEASE AND HTN. LIPASE ON ADMISSION 1571, NA+ 129, BUN 45,W BC'S 14.5, CT ABDOMEN CONFIRMS PANCREATITIS. THE PATIENT WAS STARTED ON IVF'S, ATIVAN, ZOFRAN AND MORPHINE FOR PAIN. THE PATIENT IS IN ISOLATION FOR A POSITIVE COVID RAPID TEST, RAPID PCR BEING ORDERED TO CONFIRM WELL TESTING FOR INFLUENZA A&B. CM SPOKE WITH THE PATIENTS SISTER ANGELA BY PHONE WHO STATES THE ADDRESS ON THE FACE SHEET IS A MAILING ADDRESS. THE PATIENT LIVES IN A [facility] IN [place], HIS SISTER DID NOT KNOW THE ADDRESS. 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 HE HAS APPLIED FOR SSI BUT HASN'T COMPLETED THE PROCESS AND DOES GET FOOD STAMPS. 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 HE HAS A H/O BIPOLAR DISEASE AND SCHIZOPHRENIA PER HIS SISTER AND IS ON SEROQUEL AND BUSPAR. HE SEES HIS PSYCHIATRIST DR SAM IN [place] EVERY 2 MONTHS AND DOESN'T HAVE A PMD. 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 HIS SISTER IS HIS PRIMARY CONTACT, THE PATIENT DOES NOT HAVE AN ADVANCED DIRECTIVE BUT SHE HAS MADE MEDICAL DECISIONS FOR HIM IN THE PAST. SHE STATES THAT HE HAS BEEN IN DETENTION OFF AND ON FOR MANY YEARS, MOSTLY FOR POSSESSION AND WENT INTO RENAL FAILURE LAST YEAR WHILE HOSPITALIZED AT [facility]. HE HAS PERSISTENT GI ISSUES BUT HAS CONSISTENTLY REFUSED TO HAVE AN EGD AND OTHER DIAGNOSTICS. HIS SISTER WILL ASSIST WITH TRANSPORT HOME WHEN HE'S DISCHARGED, CM WILL FOLLOW.
--- NOTE | 2021-11-05 15:34 | NUR ---
PT YELLING AND SCREAMING, CURSING LOUDLY THROUGHOUT UNIT. WENT IN TO CHECK ON PT. PT CURSING AT STAFF. INFORMED PT NOT TO UTILIZE SUCH LANGUAGE, PT STATED "FUCK YOU.". ADMINISTERED PO ATIVAN. WILL CONTINUE TO MONITOR.
[2021-11-05 16:00] VITALS: BP 128/88
--- NOTE | 2021-11-05 16:49 | NUR ---
PT COMPLAINING OF PAIN. YELLING AND SCREAMING "HELP ME NOW". PT STATES PAIN IS 8/10. MEDICATED. WILL CONTINUE TO MONITOR.
--- NOTE | 2021-11-05 19:31 | NUR ---
ENDORSED PT TO HISTORY INSTRUCTOR NURSE FOR CONTINUITY OF CARE. PT IS STABLE.
--- NOTE | 2021-11-05 19:32 | NUR ---
RECEIVED ENDORSEMENT FROM MOISES PARKS FOR CONTINUITY OF CARE. PATIENT IS AWAKE AND STABLE. A&OX3. VERBALLY RESPONSIVE AND ABLE TO COMMUNICATE NEEDS. ON ROOM AIR WITH NO APPARENT S/SX OF ACUTE DISTRESS. RESPIRATIONS EVEN AND UNLABORED WITH NO APPARENT S/SX OF ACUTE DISTRESS. AMBULATORY AND SCABBING WOUND ON ABD NOTED. CONTINENT OF VOID AND BM. IV SITE TO THE LFA 24G PATENT/INTACT WITH NS INFUSING AT 80 ML/HR. PLAN OF CARE AND WHITE COMMUNICATION BOARD UPDATED. ALL SAFETY MEASURES IN PLACE. CALL LIGHT WITHIN REACH. WILL CONTINUE TO MONITOR.
--- NOTE | 2021-11-05 20:00 | NUR ---
Patient's Plan of Care was discussed and reviewed with MOISES: DORCAS
[2021-11-05] MEDS: ZOLPIDEM 5 MG TAB PO PRN (21:09)
[2021-11-05] MEDS: QUEtiapine FUMARATE 100 MG TAB PO SCH (21:09)
--- NOTE | 2021-11-05 21:10 | NUR ---
ADMINISTERED SCHEDULED PO MEDS PER MD ORDER. TOLERATED WELL. PATIENT STATES HE IS IN 8/10 ABD PAIN. IM MORPHINE SULFATE PRN ADMINISTERED PER MD ORDER. TOLERATED WELL. PATIENT HAD 1 EPISODE OF OUTBURST WHERE PATIENT YELLED, "COME HELP ME!!!" LOUDLY AND BANGED THE DOOR OF PATIENT'S ROOM. IMPLEMENTED THERAPEUTIC COMMUNICATION AND PATIENT SEEMS TO BE RESPONDING WELL. WHITE COMMUNICATION BOARD UPDATED. ALL SAFETY MEASURES IN PLACE. CALL LIGHT WITHIN REACH WILL CONTINUE TO MONITOR.
--- NOTE | 2021-11-05 23:05 | NUR ---
PATIENT STABLE AND ASLEEP. CHEST IS RISING AND FALLING EVENLY. RESPIRATIONS EVEN AND UNLABORED WITH NO APPARENT S/SX OF ACUTE DISTRESS. WHITE COMMUNICATION BOARD UPDATED. ALL SAFETY MEASURES IN PLACE. CALL LIGHT WITHIN REACH. WILL CONTINUE TO MONITOR.
[2021-11-06] MEDS: LORazepam 1 MG TAB PO PRN ×6 (01:01→22:21)
[2021-11-06] MEDS: MORPHINE SULFATE 4 MG/ML SYR IM/IVP PRN ×6 (01:01→22:21)
--- NOTE | 2021-11-06 01:01 | NUR ---
PATIENT HAD AN EPISODE OF OUTBURST YELLING HE IS IN PAIN. PATIENT STATES ABD PAIN 10/10. MEDICATED PER PRN ORDER. TOLERATED WELL. RESPIRATIONS EVEN AND UNLABORED WITH NO APPARENT S/SX OF ACUTE DISTRESS. ALL SAFETY MEASURES IN PLACE. CALL LIGHT WITHIN REACH. WILL CONTINUE TO MONITOR.
[2021-11-06] MEDS: GAUZE TP SCH ×2 (01:02→13:01)
--- NOTE | 2021-11-06 05:05 | NUR ---
PATIENT C/O ABD PAIN 02/06. MEDICATED PER PRN ORDER. TOLERATED WELL. RESPIRATIONS EVEN AND UNLABORED WITH NO APPARENT S/SX OF ACUTE DISTRESS. ALL NEEDS MET. ALL SAFETY MEASURES IN PLACE. CALL LIGHT WITHIN REACH. WILL CONTINUE TO MONITOR.
[2021-11-06 06:50] LABS: BASOPHILS # (AUTO) 0.1 K/uL (0.00-0.22); BASOPHILS % (AUTO) 0.4 % (0.0-2.0); EOSINOPHILS # (AUTO) 0.2 K/uL (0-0.4); EOSINOPHILS % (AUTO) 1.3 % (0.0-4.0); HEMATOCRIT 41.9 % (36-52); HEMOGLOBIN 14.2 g/dL (12.0-18.0); LYMPHOCYTES % (AUTO) 13.2 % (20.5-51.1); MEAN CORPUSCULAR HEMOGLOBIN 31 pg (27-31); MEAN CORPUSCULAR HGB CONC 34 g/dL (33-37); MEAN CORPUSCULAR VOLUME 90.2 fL (80-94); MONOCYTES # (AUTO) 1.4 K/uL (0.8-1.0); NEUTROPHILS # (AUTO) 11.7 K/uL (1.8-7.7); NEUTROPHILS % (AUTO) 76.1 % (42.2-75.2); PLATELET COUNT (AUTO) 220 K/uL (140-450); RED BLOOD CELL COUNT(AUTO) 4.65 MIL/uL (4.20-6.10); RED CELL DISTRIBUTION WIDTH 13.5 % (11.6-13.7); WHITE BLOOD COUNT (AUTO) 15.4 K/uL (4.8-10.8)
[2021-11-06 06:56] LABS: ALBUMIN 3.1 g/dL (3.4-5.0); ANION GAP 9.9 (8-16); CARBON DIOXIDE 27.3 mmol/L (21-32); CREATININE 1.7 mg/dL (0.6-1.3); POTASSIUM 4.2 mmol/L (3.5-5.1); TOTAL BILIRUBIN 0.6 mg/dL (0.0-1.0)
--- NOTE | 2021-11-06 07:25 | NUR ---
ENDORSED PATIENT TO MOISES HANSEN FOR CONTINUITY OF CARE. PATIENT IS STABLE.
--- NOTE | 2021-11-06 07:26 | NUR ---
RECEIVED REPORT FROM NUTRITIONAL HEALTH COACH NURSE FOR CONTINUITY OF CARE. PATIENT AWAKE AND NOTED WITH ANGER OUT BUST. CALM DOWN AFTER FEW MINUTES. RESPIRATION EVEN AND NOT LABORED NO SHORTNESS OF BREATH. NO COUGH OR CONGESTION. ENCOURAGED TO STAY INSIDE HIS ROOM FOR DROPLET ISOLATION. REFUSED TO HOOK ON IV HYDRATION. ALL SAFETY MEASURE IN PLACE.
[2021-11-06] MEDS: NACL 0.9% 1,000 ML IV SCH (07:55)
--- NOTE | 2021-11-06 08:00 | NUR ---
RECEIVED BEDSIDE REPORT FROM MOISES HANSEN FOR CONTINUITY OF CARE.
--- NOTE | 2021-11-06 08:35 | NUR ---
PATIENT NOTED WITH ANGER OUT BURST AGAIN AND TRIED TO GET OUT OF THE HOSPITAL TO DOOR NEXT TO HIS ROOM. 1 OF THE STAFF STOPPED AND TALK TO HIM. PATIENT GOES BACK TO HIS ROOM.
[2021-11-06] MEDS: busPIRone 5 MG TAB PO SCH ×2 (09:04→21:35)
--- NOTE | 2021-11-06 09:05 | NUR ---
PATIENT COMPLAIN OF PAIN AND NOTED WITH ANXIETY GIVEN ALL DUE MEDICATION AND MORPHINE IM, ATIVAN FOR ANXIETY . PATIENT REFUSED PANTOPRAZOLE IVP EVEN WITH ENCOURAGEMENT.
[2021-11-06] MEDS: ENOXAPARIN 40 MG/0.4 ML SYR SUBQ SCH (09:06)
--- NOTE | 2021-11-06 09:32 | NUR ---
LEFT MESSAGE TO DR. MELENDEZ RETURNED GOODS REPAIRER FOR DR. FUNEZ FOR PT. REFUSAL FOR PANTOPRAZOLE AND PT. REQUEST FOR REGULAR FOOD. WAITING FOR RESPONSE.
--- NOTE | 2021-11-06 10:04 | NUR ---
DR. MELENDEZ RESPONDED TO CHANGE PANTOPRAZOLE TO ORAL AND MAY HAVE REGULAR DIET.
--- NOTE | 2021-11-06 11:30 | NUR ---
PATIENT ON BED ASLEEP AT HIS TIME.
--- NOTE | 2021-11-06 13:04 | NUR ---
DR. MELENDEZ AT STATION AND SEEN AND EXAMINED THE PATIENT INFORM THAT HE ALSO REFUSING IV HYDRATION. HE ORDER TO DISCONTINUE IT.
--- NOTE | 2021-11-06 14:00 | NUR ---
NOTED PATIENT HAS NEW ORDER FOR ROCEPHIN IVPB BUT PATIENT REFUSED TO PUT ON IV. LEFT MESSAGE TO DR. MELENDEZ. WAITING FOR RESPONSE.
--- NOTE | 2021-11-06 14:08 | NUR ---
GIVEN MORPHINE AND ATIVAN DUE TO RESTLESS DAVY AND COMPLAIN OF ABDOMINAL PAIN.
--- NOTE | 2021-11-06 16:00 | NUR ---
PATIENT ON BED ASLEEP WITH CALL LIGHT WITH IN EASY REACH.
--- NOTE | 2021-11-06 16:45 | NUR ---
PATIENT SISTER CALLED REGARDING PATIENT. INFORM HER PATIENT UPDATE REGARDING HER BOTHER CONDITION.
--- NOTE | 2021-11-06 16:50 | NUR ---
PATIENT KEEP ON SAYING HIS HUNGRY BUT REFUSED TO EAT MEAL AND FOOD THAT WE OFFER TO HIM. SISTER SAID SHE WILL BRING FOOD FOR PATIENT.
--- NOTE | 2021-11-06 16:56 | NUR ---
DR. MELENDEZ RESPONSE TO JUST DISCONTINUE ROCEPHIN.
--- NOTE | 2021-11-06 18:28 | NUR ---
PATIENT ASSISTED WITH MEAL ATE FEW BITE OF MEATLOAF AND MASH POTATOES, 1 CUP OF PUDDING. COMPLAIN OF ABDOMINAL AND NOTED WITH ANXIETY AND RESTLESS NESS. PAIN MEDICATION AND ATIVAN GIVEN. NO FEVER OR CHILLS NO SHORTNESS OF BREATH. DENIES SORE THROAT. NO NAUSEA OR VOMITING. CALL LIGHT WITH IN EASY REACH.
--- NOTE | 2021-11-06 19:22 | NUR ---
PATIENT AWAKE EATING. GAVE REPORT TO COLD ROLL INSPECTOR FOR CONTINUITY OF CARE.
--- NOTE | 2021-11-06 19:23 | NUR ---
RECEIVED ENDORSEMENT FROM MOISES HANSEN FOR CONTINUITY OF CARE. PATIENT IS AWAKE AND STABLE. A&OX3. VERBALLY RESPONSIVE AND ABLE TO COMMUNICATE NEEDS. ON ROOM AIR WITH NO APPARENT S/SX OF ACUTE DISTRESS. RESPIRATIONS EVEN AND UNLABORED WITH NO APPARENT S/SX OF ACUTE DISTRESS. AMBULATORY AND SCABBING WOUND ON ABD NOTED. CONTINENT OF VOID AND BM. IV SITE NOT PRESENT AND DISCONTINUED PER MD ORDER. PLAN OF CARE AND WHITE COMMUNICATION BOARD UPDATED. ALL SAFETY MEASURES IN PLACE. CALL LIGHT WITHIN REACH. WILL CONTINUE TO MONITOR.
[2021-11-06 20:00] VITALS: BP 131/90
--- NOTE | 2021-11-06 20:00 | NUR ---
REVIEWD PLAN OF CARE WITH MOISES MCKENZIE AMD WILL CONTINUE WITH PLAN OF CARE
--- NOTE | 2021-11-06 20:05 | NUR ---
PATIENT IS HAVING AN OUTBURST AND WALKED OUT IN THE HALLWAY YELLING "COME HELP ME." INSTRUCTED PATIENT TO GO BACK IN ROOM DUE TO ISOLATION PROTOCOL. PATIENT COMPLIED BUT STILL AGITATED. PATIENT KEPT STATING "I DON'T KNOW WHERE I AM AT." RE-ORIENTED PATIENT BACK TO HOSPITAL SURROUNDING. PATIENT FAILED TO STATE THE REASON FOR HIS HOSPITAL STAY. RE-EDUCATED PATIENT THAT HE IS POSITIVE COVID AND PATIENT RESPONDED, "I DO NOT HAVE COVID!" UPON ASSESSMENT, THE WALL OF PATIENT'S ROOM HAVE BEEN DAMAGED RIGHT NEXT TO THE DOOR. PATIENT'S CONTROL BOARD ON BED ALSO DAMAGED. PATIENT STATED HE DOESN'T KNOW WHAT HAPPENED. CALLED SECURITY AND AWARE OF THE SITUATION. PER SECURITY, DOCUMENT THE SITUATION. WILL CONTINUE TO MONITOR.
--- NOTE | 2021-11-06 21:10 | NUR ---
PATIENT HAS ANOTHER EPISODE OF OUTBURST. RE-ORIENTED PATIENT BACK TO HOSPITAL SURROUNDING. SCHEDULED PO MEDICATION ADMINISTRATED AT THIS TIME. TOLERATED WELL. RESPIRATIONS EVEN AND UNLABORED WITH NO APPARENT S/SX OF ACUTE DISTRESS. WHITE COMMUNICATION BOARD UPDATED. ALL SAFETY MEASURES IN PLACE. CALL LIGHT WITHIN REACH. WILL CONTINUE TO MONITOR.
[2021-11-06] MEDS: ZOLPIDEM 5 MG TAB PO PRN (21:35)
[2021-11-06] MEDS: QUEtiapine FUMARATE 100 MG TAB PO SCH (21:35)
[2021-11-06] MEDS: ASCORBIC ACID 500 MG TAB PO SCH (21:35)
[2021-11-06] MEDS: ZINC SULF 220 MG CAP PO SCH (21:35)
--- NOTE | 2021-11-06 21:40 | NUR ---
PATIENT HAS ANOTHER EPISODE OF OUTBURST IN THE HALLWAY. REMINDED PATIENT TO STAY IN ROOM. FLOOR IS WET FROM SPILLED WATER AND FOOD TRASHED IN THE FLOOR. WILL CONTACT EVS TO CLEAN PATIENT'S ROOM.
--- NOTE | 2021-11-06 23:10 | NUR ---
PATIENT IS STABLE AND QUIET IN BED. PATIENT IS MUMBLING WORDS TO HIMSELF IN REPETITION. PATIENT APPEARS TO BE DISENGAGED. FLACC 0. RESPIRATIONS EVEN AND UNLABORED WITH NO APPARENT S/SX OF ACUTE DISTRESS. ALL SAFETY MEASURES IN PLACE. CALL LIGHT WITHIN REACH. WILL CONTINUE TO MONITOR.
--- NOTE | 2021-11-07 01:10 | NUR ---
PATIENT STABLE AND ASLEEP. CHEST IS RISING AND FALLING EVENLY. RESPIRATIONS EVEN AND UNLABORED WITH NO APPARENT S/SX OF ACUTE DISTRESS. ALL SAFETY MEASURES IN PLACE. CALL LIGHT WITHIN REACH. WILL CONTINUE TO MONITOR.
[2021-11-07] MEDS: GAUZE TP SCH (01:21)
--- NOTE | 2021-11-07 03:45 | NUR ---
PATIENT AWOKE AND HAD AN EPISODE OF OUTBURST. PATIENT YELLED, "I NEED SOME HELP HERE!" PATIENT IS REDIRECTED BACK TO ROOM. PATIENT STATED, "I'M IN A LOT OF PAIN!" PATIENT CURLED IN BED AND ARMS GUARDING ABDOMINAL AREA ASSOCIATED WITH FACIAL GRIMACING AND RESTLESSNESS. PATIENT MEDICATED PER PRN ORDER. TOLERATED WELL. PATIENT IS CONTINUALLY MUMBLING TO SELF, "I NEED TO GO HOME..." PATIENT IS RE-ORIENTED BACK TO HOSPITAL ENVIRONMENT. ALL SAFETY MEASURES IN PLACE. CALL LIGHT WITHIN REACH. WILL CONTINUE TO MONITOR.
[2021-11-07] MEDS: MORPHINE SULFATE 4 MG/ML SYR IM/IVP PRN (03:46)
[2021-11-07] MEDS: LORazepam 1 MG TAB PO PRN ×2 (03:47→09:38)
[2021-11-07 04:00] VITALS: BP 141/98
--- NOTE | 2021-11-07 04:50 | NUR ---
PATIENT OPENED DOOR AND STATED, "I NEED SOME WATER!" INSTRUCTED PATIENT BACK TO BED AND PROVIDED WATER PER REQUEST. PATIENT CONTINUES TO MUMBLE TO SELF, "I NEED TO GO HOME, MAN..." RE-ORIENTED PATIENT BACK TO HOSPITAL SURROUNDING. ALL SAFETY MEASURES IN PLACE. WILL CONTINUE TO MONITOR.
[2021-11-07 06:51] LABS: BASOPHILS # (AUTO) 0.1 K/uL (0.00-0.22); BASOPHILS % (AUTO) 0.4 % (0.0-2.0); EOSINOPHILS # (AUTO) 0.4 K/uL (0-0.4); EOSINOPHILS % (AUTO) 2.6 % (0.0-4.0); HEMATOCRIT 38.6 % (36-52); LYMPHOCYTES # (AUTO) 1.7 K/uL (2.0-11.5); LYMPHOCYTES % (AUTO) 10.9 % (20.5-51.1); MEAN CORPUSCULAR HEMOGLOBIN 31 pg (27-31); MEAN CORPUSCULAR HGB CONC 34 g/dL (33-37); MEAN CORPUSCULAR VOLUME 90.6 fL (80-94); MONOCYTES # (AUTO) 1.6 K/uL (0.8-1.0); MONOCYTES % (AUTO) 9.8 % (1.7-9.3); NEUTROPHILS # (AUTO) 12.1 K/uL (1.8-7.7); NEUTROPHILS % (AUTO) 76.3 % (42.2-75.2); PLATELET COUNT (AUTO) 231 K/uL (140-450); RED BLOOD CELL COUNT(AUTO) 4.26 MIL/uL (4.20-6.10); RED CELL DISTRIBUTION WIDTH 13.6 % (11.6-13.7); WHITE BLOOD COUNT (AUTO) 15.9 K/uL (4.8-10.8)
--- NOTE | 2021-11-07 07:00 | NUR ---
ENDORSED PATIENT TO MOISES HANSEN FOR CONTINUITY OF CARE. PATIENT IS STABLE.
--- NOTE | 2021-11-07 07:05 | NUR ---
PATIENT GOING OUT OF ROOM HAVING OUT BURST REDIRECTED TO ROOM. TALKED CALMLY BY [employer] TEAM MEMBER NURSE. RECEIVED REPORT FROM [employer] TEAM MEMBER NURSE FOR CONTINUITY OF CARE. IV SITE ON LEFT FOREARM RODGER 24. RESPIRATION EVEN AND NOT LABORED NO SHORTNESS OF BREATH NOTED. CALL LIGHT WITH IN EASY REACH.
[2021-11-07 07:15] LABS: ALBUMIN 2.8 g/dL (3.4-5.0); ANION GAP 12.4 (8-16); CARBON DIOXIDE 25.8 mmol/L (21-32); CREATININE 1.8 mg/dL (0.6-1.3); POTASSIUM 4.2 mmol/L (3.5-5.1); TOTAL BILIRUBIN 0.6 mg/dL (0.0-1.0)
--- NOTE | 2021-11-07 07:45 | NUR ---
PATIENT REFUSED TO CHECK VITAL SIGN EVEN WITH ENCOURAGEMENT AND EXPLANATION. PATIENT SAID GET AWAY.
--- NOTE | 2021-11-07 08:30 | NUR ---
PATIENT HAD EPISODE OF OUT BURST REDIRECTED TO ROOM. EXPLAIN THE NEED FOR STAYING IN HIS ROOM DUE TO DROPLET ISOLATION.
[2021-11-07] MEDS ORDERED: AZITHROMYCIN 250 MG TAB PO SCH (09:00)
[2021-11-07] MEDS ORDERED: PANTOPRAZOLE 40 MG TABEC PO SCH (09:00)
[2021-11-07] MEDS ORDERED: DEXAMETHASONE 4 MG/ML VIAL IVP SCH (09:00)
--- NOTE | 2021-11-07 09:00 | NUR ---
PATIENT HAD OUT BURST AND GOES OUT THE DOOR TO PARKING LOT CALLED SECURITY. CHARGE NURSE HELP ME TO REDIRECTED PATIENT ENCOURAGE TO STAY ON HIS ROOM. PATIENT AGREED AND GOES TO HIS ROOM.
--- NOTE | 2021-11-07 09:05 | NUR ---
PATIENT KEEP ON SAYING I WANT TO GO HOME. WHERE IS MY SISTER? RE ORIENTED THAT HE NEED TO BE HERE IN THE HOSPITAL SO HIS PAIN IN HIS ABDOMEN WILL BE CURE.
[2021-11-07] MEDS: ASCORBIC ACID 500 MG TAB PO SCH (09:37)
[2021-11-07] MEDS: busPIRone 5 MG TAB PO SCH (09:37)
[2021-11-07] MEDS: HYDROcodone/APAP 5/325 MG 1 TAB TAB PO PRN (09:38)
[2021-11-07] MEDS: ZINC SULF 220 MG CAP PO SCH (09:38)
--- NOTE | 2021-11-07 09:40 | NUR ---
PATIENT HAD OUTBURST AGAIN AND WENT OUT THE DOOR TO PARKING LOT REDIRECTED AND PATIENT WENT BACK TO HIS ROOM AFTER FEW MINUTES ON TALKING TO HIM.
[2021-11-07] MEDS: ENOXAPARIN 40 MG/0.4 ML SYR SUBQ SCH (09:49)
--- NOTE | 2021-11-07 09:50 | NUR ---
GIVEN PATIENT HIS MEDICATION AND PAIN MEDICATION AND ATIVAN TOLERATED WELL.
--- NOTE | 2021-11-07 09:55 | NUR ---
PATIENT KEEP ON SAYING I WANT TO GO HOME. EVEN THOUGH INFORM OF NEEDS TO BE HERE IN THE HOSPITAL PATIENT GET MAD AND SAID I DON'T CARE.
--- NOTE | 2021-11-07 10:10 | NUR ---
DIALED THE PHONE OF HIS SISTER ANGELA PATIENT IS TALKING TO HER NOW.
--- NOTE | 2021-11-07 10:20 | NUR ---
CALLED HIS SISTER ANGELA INFORM THE RESIDENT TRYING TO GO HOME. AND SEVERAL TIMES THAT PATIENT GOES TO PARKING LOT AND WE DON'T HAVE TO HOLD THE PATIENT IF HE WANT TO GO HOME. ANGELA SISTER SAID I CAN'T PICK HIM UP BECAUSE HE HAS COVID. INFORM HER THAT IF PATIENT WANT TO LEAVE WE CAN'T STOP HIM.
--- NOTE | 2021-11-07 10:36 | NUR ---
PATIENT GOES OUT AGAIN TO BACK DOOR TO PARKING LOT UNABLE TO PERSUADE TO COME BACK.
--- NOTE | 2021-11-07 10:45 | NUR ---
INFORM SISTER ANGELA THAT THE PATIENT LEFT. EVEN OUR ENCOURAGEMENT AND EXPLANATION OF RISK AND BENEFIT.
== END 2021-11-07 10:40 | disposition left against medical advice (07) | DRG 282 ==
LOC: MED 11:51 → MTU 15:47
PROVIDERS: ADMIT Internal Medicine; ATTEND Internal Medicine
DX: K85.90 Acute pancreatitis without necrosis or infection, unspecified (principal); U07.1 COVID-19; N17.9 Acute kidney failure, unspecified; R65.10 Systemic inflammatory response syndrome (SIRS) of non-infectious origin without acute organ dysfunction; I10 Essential (primary) hypertension; F17.200 Nicotine dependence, unspecified, uncomplicated; K21.9 Gastro-esophageal reflux disease without esophagitis; E87.1 Hypo-osmolality and hyponatremia; Z90.49 Acquired absence of other specified parts of digestive tract; Z88.0 Allergy status to penicillin; Z79.899 Other long term (current) drug therapy; Z82.49 Family history of ischemic heart disease and other diseases of the circulatory system
CPT/HCPCS: 36415; 80053; 83690; 85025; 87081; 87635-QW; 96361; 96374; 96375; 99285; C9113; J0696; J1100; J1200; J1650; J2270; J2405; J2765; J3490; J7030; J7060

== ENCOUNTER 2021-11-07 11:40 | Emergency (ER) | payer OTHER ==
[~2021-11-07] VITALS: Ht 170.2 cm; Wt 78.5 kg
[2021-11-07 11:43] VITALS: BP 119/75
--- NOTE | 2021-11-07 13:44 | NUR ---
PATIENT LEFT WITHOUT BEING SEEN BY DR. LAUREANO. NO FURTHER CARE PROVIDED FOR PATIENT.
== END 2021-11-07 13:44 | disposition left against medical advice (07) ==
LOC: MED 11:40
DX: R10.9 Unspecified abdominal pain (principal); Z88.0 Allergy status to penicillin; Z53.21 Procedure and treatment not carried out due to patient leaving prior to being seen by health care provider

== ENCOUNTER 2022-02-24 08:05 | Emergency (ER) | payer OTHER ==
[~2022-02-24] VITALS: Ht 177.8 cm; Wt 98.0 kg
--- NOTE | 2022-02-24 08:11 | NUR ---
CALLED PT IN LOBBY AND PARKING, NO RESPONSE
[2022-02-24 08:16] VITALS: BP 145/108
--- NOTE | 2022-02-24 08:18 | NUR ---
PT AMBULATED TO BATHROOM WITH STEADY GAIT
--- NOTE | 2022-02-24 08:27 | NUR ---
56 Y/O MALE BIB SELF C/O OF BURNING ABD PAIN THAT RADIATES IN THE MIDDLE UPPER AND LOWER ABD X1DAY. TOOK MAALOX WITH MINIMAL RELIEF. DENIES N/V/D, FEVERS ALLERGY: PCN PMH: HX: ULCERS
--- NOTE | 2022-02-24 08:48 | NUR ---
PT SEEN EATING A SANDWICH, AND DRINKING MILK IN LOBBY
--- NOTE | 2022-02-24 08:50 | NUR ---
PT AMBULATED TO BED4
--- NOTE | 2022-02-24 09:17 | NUR ---
PT REQUESTING TO WAIT IN HIS CAR D/T PAIN, EXPLAINED TO PT THAT HE HAS TO WAIT IN THE ROOM TO BE SEEN BY THE PHYSICAN, WE DO NOT SEE ANYONE IN THE CAR. PT RETURNED TO ER BED 4
--- NOTE | 2022-02-24 09:22 | NUR ---
PT STORMED OUT, STATED TO ER ADMITTING THAT HE IS GOING TO DRIVE HIS CAR INTO THE HOSPITAL BECAUSE WE ARE NOT HELPING HIM. ANDRAE GALLEGOS CONTACTED FOR ASSISTANCE. SECURITY CALLED
--- NOTE | 2022-02-24 09:30 | NUR ---
[place] [facility] AT BEDSIDE
[2022-02-24] MEDS ORDERED: MORPHINE SULFATE 2 MG/ML SYR IM STA (09:33)
[2022-02-24] MEDS ORDERED: DICYCLOMINE HCL LIQUID 20 MG, ALUMINUM HYD/MAG/SIMETHICONE 30 ML, LIDOCAINE VISCOUS 2% ... PO ONE ×3 (09:35)
[2022-02-24] MEDS ORDERED: KETOROLAC 30 MG/ML VIAL IM ONE (09:35)
[2022-02-24] MEDS ORDERED: DICYCLOMINE HCL LIQUID 10 MG/5 ML UDC ONE (09:45)
[2022-02-24] MEDS ORDERED: ALUMINUM HYD/MAG/SIMETHICONE 30 ML UDC ONE (09:45)
[2022-02-24 10:02] LABS: BASOPHILS # (AUTO) 0.1 K/uL (0.00-0.22); EOSINOPHILS # (AUTO) 0.3 K/uL (0-0.4); EOSINOPHILS % (AUTO) 2.3 % (0.0-4.0); HEMOGLOBIN 13.9 g/dL (12.0-18.0); LYMPHOCYTES # (AUTO) 1.8 K/uL (2.0-11.5); LYMPHOCYTES % (AUTO) 15.2 % (20.5-51.1); MEAN CORPUSCULAR HEMOGLOBIN 32 pg (27-31); MEAN CORPUSCULAR HGB CONC 34 g/dL (33-37); MEAN CORPUSCULAR VOLUME 93.2 fL (80-94); MONOCYTES # (AUTO) 0.6 K/uL (0.8-1.0); MONOCYTES % (AUTO) 5.1 % (1.7-9.3); NEUTROPHILS % (AUTO) 76.4 % (42.2-75.2); PLATELET COUNT (AUTO) 305 K/uL (140-450); RED CELL DISTRIBUTION WIDTH 14.2 % (11.6-13.7); WHITE BLOOD COUNT (AUTO) 11.8 K/uL (4.8-10.8)
[2022-02-24 10:27] LABS: ALBUMIN 3.8 g/dL (3.4-5.0); ANION GAP 13.9 (8-16); CARBON DIOXIDE 24.9 mmol/L (21-32); CREATININE 1.9 mg/dL (0.6-1.3); POTASSIUM 3.8 mmol/L (3.5-5.1); TOTAL BILIRUBIN 0.4 mg/dL (0.0-1.0)
[2022-02-24] MEDS ORDERED: ACET-9525 PO (10:55)
[2022-02-24] MEDS ORDERED: FAMO-90 PO ×2 (10:55→11:18)
[2022-02-24] MEDS ORDERED: MAG355OR2 PO ×2 (10:55→11:18)
[2022-02-24 11:15] VITALS: BP 169/101
--- NOTE | 2022-02-24 11:19 | NUR ---
Patient discharged with v/s stable. Written and verbal after care instructions ABOUT ABDOMINAL PAIN given and explained. Patient alert, oriented and verbalized understanding of instructions. Ambulatory with steady gait. All questions addressed prior to discharge. ID band removed. Patient advised to follow up with PMD. Rx of NORCO 5-325, PEPCID, AND MAALOX MAX STRENGTH given. Patient educated on indication of medication including possible reaction and side effects. Opportunity to ask questions provided and answered.
== END 2022-02-24 11:19 | disposition home or self-care (01) ==
LOC: MED 08:05
DX: K29.70 Gastritis, unspecified, without bleeding (principal); R46.89 Other symptoms and signs involving appearance and behavior; I10 Essential (primary) hypertension; F17.210 Nicotine dependence, cigarettes, uncomplicated; Z79.899 Other long term (current) drug therapy; Z88.0 Allergy status to penicillin
CPT/HCPCS: 36415; 80053; 81002; 83690; 85025; 96372; 99284; J1885; J2270

== ENCOUNTER 2022-03-17 07:38 | Emergency (ER) | payer OTHER ==
[~2022-03-17] VITALS: Ht 175.3 cm; Wt 86.2 kg
[~2022-03-17 07:38] MED LIST changes: +ACET-9525 PO; +FAMO-90 PO; +MAG355OR2 PO
[2022-03-17 07:43] VITALS: BP 144/96
[2022-03-17] MEDS ORDERED: ALUMINUM HYD/MAG/SIMETHICONE 30 ML UDC PO ONE (07:50)
--- NOTE | 2022-03-17 07:57 | NUR ---
[facility] AT BEDSIDE
[2022-03-17 08:05] LABS: BASOPHILS # (AUTO) 0.1 K/uL (0.00-0.22); BASOPHILS % (AUTO) 1.1 % (0.0-2.0); EOSINOPHILS # (AUTO) 0.3 K/uL (0-0.4); EOSINOPHILS % (AUTO) 3.8 % (0.0-4.0); HEMATOCRIT 44.4 % (36-52); HEMOGLOBIN 15.2 g/dL (12.0-18.0); LYMPHOCYTES # (AUTO) 2.4 K/uL (2.0-11.5); LYMPHOCYTES % (AUTO) 32.6 % (20.5-51.1); MEAN CORPUSCULAR HEMOGLOBIN 32 pg (27-31); MEAN CORPUSCULAR HGB CONC 34 g/dL (33-37); MEAN CORPUSCULAR VOLUME 92.9 fL (80-94); MONOCYTES # (AUTO) 0.7 K/uL (0.8-1.0); MONOCYTES % (AUTO) 9.3 % (1.7-9.3); NEUTROPHILS % (AUTO) 53.2 % (42.2-75.2); PLATELET COUNT (AUTO) 310 K/uL (140-450); RED BLOOD CELL COUNT(AUTO) 4.78 MIL/uL (4.20-6.10); RED CELL DISTRIBUTION WIDTH 13.5 % (11.6-13.7); WHITE BLOOD COUNT (AUTO) 7.4 K/uL (4.8-10.8)
[2022-03-17] MEDS ORDERED: SUCRALFATE 1 GM TAB PO ONE (08:05)
--- NOTE | 2022-03-17 08:05 | NUR ---
DR ABERNATHY AT BEDSIDE FOR EVAL
--- NOTE | 2022-03-17 08:06 | NUR ---
57 Y/O MALE BIB SELF C/O BURNING ABD PAIN 10/10 LOCALIZED IN THE EPIGASTRIC REGION, DENIES RADIATION X2DAYS, DENIES ANY MEDICATION FOR PAIN, DENIES N/V/D, DENIES FOOD INTAKE BEFORE PRESENTATION TO ED. ALLERGY: PCN PMH: HX PANCREATITIS,, HX GASTRIC ULCERS
--- NOTE | 2022-03-17 08:15 | NUR ---
PT AMBULATED TO BATHROOM WITH STEADY GAIT
[2022-03-17 08:25] LABS: ALBUMIN 4.1 g/dL (3.4-5.0); ANION GAP 16.7 (8-16); CARBON DIOXIDE 22.4 mmol/L (21-32); POTASSIUM 4.1 mmol/L (3.5-5.1); TOTAL BILIRUBIN 0.6 mg/dL (0.0-1.0)
[2022-03-17] MEDS ORDERED: SUCRALFATE 1 GM TAB PO SCH (09:00)
[2022-03-17] MEDS ORDERED: MORPHINE SULFATE 4 MG/ML SYR IVP ONE (09:05)
--- NOTE | 2022-03-17 09:51 | NUR ---
Patient discharged with v/s stable. Written and verbal after care instructions given and explained. Patient verbalized understanding. Ambulatory with steady gait. All questions addressed prior to discharge. Advised to follow up with PMD.
== END 2022-03-17 09:51 | disposition home or self-care (01) ==
LOC: MED 07:38
DX: R10.84 Generalized abdominal pain (principal)
CPT/HCPCS: 36415; 80053; 83690; 85025; 96372; 99283; J2270

== ENCOUNTER 2022-04-03 21:08 | Emergency (ER) | payer OTHER ==
[~2022-04-03] VITALS: Ht 177.8 cm; Wt 102.1 kg
[2022-04-03 21:40] VITALS: BP 143/98
--- NOTE | 2022-04-03 22:15 | NUR ---
PT TO BED 12
--- NOTE | 2022-04-03 22:26 | NUR ---
57 YO M BIB SELF WITH C/C OF 10/10 MID ABD PAIN XTODAY. PT DESCRIBES BURNING, RAD TO CHEST AND CAUSES SOB WHEN PAIN IS SEVERE. PT STATES EATING MAKES THE PAIN WORSE. REPORTS HE TOOK TRAMADOL YESTERDAY WITH NO RELIEF. PT STATES THIS PAIN HAS HAPPENED BEFORE BUT SUBSIDED ON ITS OWN. BOWEL SOUNDS [id number], ABD APPEARS ROUND AND SOFT. STATES HE IS ELIMINATING NORMALLY. DENIES HX ALLERGY TO PCN
[2022-04-03 22:54] VITALS: BP 143/98
--- NOTE | 2022-04-03 22:54 | NUR ---
PT LEFT WITHOUT BEING SEEN
== END 2022-04-03 22:54 | disposition left against medical advice (07) ==
LOC: MED 21:08
DX: R10.9 Unspecified abdominal pain (principal); Z53.21 Procedure and treatment not carried out due to patient leaving prior to being seen by health care provider

== ENCOUNTER 2022-07-17 06:03 | Emergency (ER) | payer OTHER ==
[~2022-07-17] VITALS: Ht 175.3 cm; Wt 90.3 kg
[~2022-07-17 06:03] MED LIST changes: -ACET-8386 PO; +ACET-8905 PO
[2022-07-17 06:09] VITALS: BP 132/99
[2022-07-17 06:18] VITALS: BP 132/99
--- NOTE | 2022-07-17 06:18 | NUR ---
Dr. Veliz examining patient.
[2022-07-17] MEDS ORDERED: DICYCLOMINE HCL LIQUID 20 MG, ALUMINUM HYD/MAG/SIMETHICONE 30 ML, LIDOCAINE VISCOUS 2% ... PO ONE ×3 (06:20)
[2022-07-17] MEDS ORDERED: ALUMINUM HYD/MAG/SIMETHICONE 30 ML UDC ONE (06:22)
[2022-07-17] MEDS ORDERED: DICYCLOMINE HCL LIQUID 10 MG/5 ML UDC ONE (06:22)
--- NOTE | 2022-07-17 06:37 | NUR ---
Patient walked out ER lobby.
--- NOTE | 2022-07-17 07:15 | NUR ---
pt not in lobby.
--- NOTE | 2022-07-17 07:30 | NUR ---
pt not in lobby.
--- NOTE | 2022-07-17 07:30 | NUR ---
pt eloped at this time. called in lobby x2, no answer. no iv placed prior to elopement. ermd aware.
== END 2022-07-17 07:25 | disposition left against medical advice (07) ==
LOC: MED 06:03
DX: K29.70 Gastritis, unspecified, without bleeding (principal); F43.9 Reaction to severe stress, unspecified; I10 Essential (primary) hypertension; Z59.819 Housing instability, housed unspecified; Z79.899 Other long term (current) drug therapy
CPT/HCPCS: 99283